=== PATIENT | male | born 1985 | race Caucasian/White ===

== ENCOUNTER 2020-03-17 13:20 | Emergency (ER) | payer SELFPAY ==
[~2020-03-17] VITALS: Ht 172.7 cm; Wt 76.2 kg
[2020-03-17 13:26] VITALS: BP 120/64
--- NOTE | 2020-03-17 13:33 | NUR ---
Dr. Grajeda evaluating pt at bedside
--- NOTE | 2020-03-17 13:34 | NUR ---
34/M c/o right eye pain 2/2 "poked" with a wire approx 20 min prior to arrival. States wire is no longer in eye. No active bleeding. No obvious foreign body. Pt denies decrease in vision. VSS.
[2020-03-17] MEDS ORDERED: HYDROcodone/APAP 5/325 MG 1 TAB TAB PO ONE (13:35)
--- NOTE | 2020-03-17 14:29 | NUR ---
Patient returned from CT scan.
--- NOTE | 2020-03-17 14:29 | NUR ---
back to bed 11 via w/c from CT scan
[2020-03-17] MEDS: TETRACAINE HCL/PF 0.5% OPTH 4 ML BTL OP ONE ×2 (15:05→15:10)
[2020-03-17] MEDS ORDERED: FLUORESCEIN OPTH STRIP 1 MG ONE (15:08)
[2020-03-17] MEDS ORDERED: TOMOMETER 1 DEV DEV MC ONE (15:31)
[2020-03-17 16:14] VITALS: BP 115/61
--- NOTE | 2020-03-17 16:14 | NUR ---
Patient discharged with v/s stable. Written and verbal after care instructions given and explained. Patient alert, oriented and verbalized understanding of instructions. Ambulatory with steady gait. All questions addressed prior to discharge. ID band removed. Patient advised to follow up with PMD. Rx of Erythromycin given. Patient educated on indication of medication including possible reaction and side effects. Opportunity to ask questions provided and answered.
[2020-03-17] MEDS ORDERED: FLUORESCEIN OPTH STRIP 1 MG OP ONE (16:15)
== END 2020-03-17 16:14 | disposition home or self-care (01) ==
LOC: MED 13:20
DX: S05.91XA Unspecified injury of right eye and orbit, initial encounter (principal); S05.00XA Injury of conjunctiva and corneal abrasion without foreign body, unspecified eye, initial encounter; W45.8XXA Other foreign body or object entering through skin, initial encounter; Y93.89 Activity, other specified; Y92.89 Other specified places as the place of occurrence of the external cause; Y99.8 Other external cause status
CPT/HCPCS: 70480; 90471; 90715; 99284

== ENCOUNTER 2020-03-19 10:43 | Emergency (ER) | payer MEDICAID ==
[~2020-03-19] VITALS: Ht 182.9 cm; Wt 77.1 kg
[2020-03-19 10:56] VITALS: BP 123/71
--- NOTE | 2020-03-19 10:58 | NUR ---
34 YEAR OLD MALE HERE FOR RECHECK IN RIGHT EYE. PT STATES EYE IS STILL BIT RED, MINIMAL PAIN. PT DENIES DISCHARGE OR WORSENING SYMPTOMS. PT AOX4, BREATHING EVEN AND UNLABORED, SKIN WARM AND DRY. BED IN LOWEST POSITION, LOCKED, BED RAIL UPX1. PMH - DENIES ALLERGIES - NKA
[2020-03-19] MEDS ORDERED: GENTAMICIN OP 0.3% 15 MG/5 ML BTL ONE (11:08)
[2020-03-19] MEDS ORDERED: GENTAMICIN OP 0.3% 15 MG/5 ML BTL OP ONE (11:10)
--- NOTE | 2020-03-19 11:15 | NUR ---
Patient discharged with v/s stable. Written and verbal after care instructions about eye corneal abrasions given and explained. Patient verbalized understanding. Ambulatory with steady gait. All questions addressed prior to discharge. Advised to follow up with PMD.
[2020-03-19 11:19] VITALS: BP 123/71
== END 2020-03-19 11:15 | disposition home or self-care (01) ==
LOC: MED 10:43
DX: H57.11 Ocular pain, right eye (principal); F17.210 Nicotine dependence, cigarettes, uncomplicated; Z48.00 Encounter for change or removal of nonsurgical wound dressing
CPT/HCPCS: 99283